=== PATIENT | female | born 1960 | race Caucasian/White ===

== ENCOUNTER → 2017-07-22 | Outpatient (CLI) | payer OTHER | END | disposition home or self-care (01) | LOC: CFH 14:06 | PROVIDERS: ATTEND Nurse Practitioner Family | DX: Z12.31 Encounter for screening mammogram for malignant neoplasm of breast (principal) | CPT/HCPCS: G0202 ==

== ENCOUNTER 2018-08-16 11:32 | Inpatient (IN) | payer OTHER ==
[~2018-08-16] VITALS: Ht 175.3 cm; Wt 115.4 kg
[2018-08-16 12:31] LABS: BASOPHILS # (AUTO) 0.02 x10^3/uL (0-0.1); BASOPHILS % (AUTO) 0 % (0-1); EOSINOPHILS # (AUTO) 0.32 x10^3/uL (0-0.4); EOSINOPHILS % (AUTO) 5 % (1-7); LYMPHOCYTES % (AUTO) 29 % (22-44); MD NO; MEAN CORPUSCULAR HEMOGLOBIN 28.9 pg (27.0-34.8); MEAN CORPUSCULAR HGB CONC 32.3 g/dL (32.4-35.8); MEAN CORPUSCULAR VOLUME 89.4 fL (80-100); MEAN PLATELET VOLUME 6.8 fL (7.4-10.4); MONOCYTES # (AUTO) 0.75 x10^3/uL (0.2-0.8); MONOCYTES % (AUTO) 11 % (2-9); NEUTROPHILS # (AUTO) 3.71 x10^3/uL (1.8-6.8); NEUTROPHILS % (AUTO) 55 % (42-75); PLATELET COUNT 274 x10^3/uL (130-400); RED BLOOD COUNT 4.22 x10^6/uL (3.82-5.3); RED CELL DISTRIBUTION WIDTH 16.1 % (9.6-15.2)
[2018-08-16 12:44] LABS: ALBUMIN 3.5 g/dL (3.4-5.0); ANION GAP 6 mmol/L (5-15); CALCIUM 8.8 mg/dL (8.5-10.1); CHLORIDE 105 mmol/L (98-107); CREATININE 0.71 mg/dL (0.55-1.02)
[2018-08-16 14:54] LABS: INTERNATIONAL NORMALIZED RATIO 0.96 (0.93-1.1)
[2018-08-16] MEDS ORDERED: SODIUM CHLORIDE FLUSH 10ML SYR IVF PRN (15:00)
[2018-08-16] MEDS ORDERED: LABETALOL 5MG/ML, 20ML IVPush PRN (15:30)
[2018-08-16] MEDS ORDERED: ONDANSETRON 2MG/ML, 2ML IVPush PRN (15:30)
[2018-08-16] MEDS ORDERED: BISACODYL 10 MG SUPP PR PRN (15:30)
[2018-08-16] MEDS ORDERED: ENALAPRILAT 1.25 MG/ML, 2ML IVPush PRN (15:30)
[2018-08-16] MEDS ORDERED: OMNIPAQUE 350 MG/ML, 100ML BOTTLE ONE (15:50)
[2018-08-16 16:21] LABS: HEMOGLOBIN A1C 5.4 % (4.2-6.3)
[2018-08-16 16:47] VITALS: BP 131/86
[2018-08-16] MEDS ORDERED: ONDANSETRON ODT 4 MG PO PRN (17:00)
[2018-08-16] MEDS ORDERED: LEVE750T13 PO (17:14)
[2018-08-16] MEDS ORDERED: AMLO5TAB7 PO (17:14)
[2018-08-16] MEDS ORDERED: SERT100T PO (17:14)
[2018-08-16] MEDS ORDERED: LEVE750T37 PO (17:14)
[2018-08-16] MEDS ORDERED: CETI-158 PO (17:14)
[2018-08-16 17:20] VITALS: BP 131/86
[2018-08-16] MEDS ORDERED: DOCUSATE 100 MG CAPSULE PO PRN (21:00)
[2018-08-16] MEDS: LEVETIRACETAM 500 MG TABLET PO SCH (21:13)
[2018-08-17] MEDS ORDERED: HEPARIN 5,000 UNITS/ML, 1ML IV ONE (02:30)
[2018-08-17] MEDS ORDERED: HEPARIN 5,000 UNITS/ML, 1ML IV PRN (02:30)
[2018-08-17] MEDS ORDERED: HEPARIN 25,000 UNITS/500ML PMX 500 ML IV PRN (02:30)
[2018-08-17] MEDS ORDERED: HEPARIN wt. based STROKE protocol MC PRN (03:00)
[2018-08-17] MEDS: HEPARIN 25,000 UNITS/500ML PMX 500 ML IV PRN ×2 (03:08→19:53)
[2018-08-17 04:14] LABS: BASOPHILS # (AUTO) 0.04 x10^3/uL (0-0.1); BASOPHILS % (AUTO) 1 % (0-1); EOSINOPHILS # (AUTO) 0.33 x10^3/uL (0-0.4); EOSINOPHILS % (AUTO) 5 % (1-7); LYMPHOCYTES % (AUTO) 26 % (22-44); MD NO; MEAN CORPUSCULAR HEMOGLOBIN 29.3 pg (27.0-34.8); MEAN CORPUSCULAR HGB CONC 32.8 g/dL (32.4-35.8); MEAN CORPUSCULAR VOLUME 89.1 fL (80-100); MEAN PLATELET VOLUME 6.8 fL (7.4-10.4); MONOCYTES # (AUTO) 0.62 x10^3/uL (0.2-0.8); MONOCYTES % (AUTO) 9 % (2-9); NEUTROPHILS # (AUTO) 3.96 x10^3/uL (1.8-6.8); NEUTROPHILS % (AUTO) 60 % (42-75); PLATELET COUNT 275 x10^3/uL (130-400); RED CELL DISTRIBUTION WIDTH 16.2 % (9.6-15.2)
[2018-08-17 04:21] LABS: ALANINE AMINOTRANSFERASE 26 U/L (12-78); ALBUMIN 3.4 g/dL (3.4-5.0); ANION GAP 8 mmol/L (5-15); CALCIUM 8.6 mg/dL (8.5-10.1); CHLORIDE 105 mmol/L (98-107); CHOLESTEROL, TOTAL 189 mg/dL (140-239); CREATININE 0.65 mg/dL (0.55-1.02)
[2018-08-17 04:23] LABS: ALKALINE PHOSPHATASE 83 U/L (45-117); BILIRUBIN,TOTAL 0.5 mg/dL (0.2-1.0); CHOL/HDL RATIO 2.9; HDL CHOL % 35 % (28-40); HDL CHOLESTEROL (DIRECT) 66 mg/dL (40-60); LDL CHOLESTEROL,CALCULATED 106 mg/dL (54-169); LDL/HDL RATIO 1.6 (0.5-3.0); TOTAL PROTEIN 6.8 g/dL (6.4-8.2); TRIGLYCERIDES 83 mg/dL (50-200); VLDL CHOLESTEROL 17 mg/dL (0-25)
[2018-08-17 05:00] VITALS: BP 122/68
[2018-08-17] MEDS: AMLODIPINE 5 MG TABLET PO SCH (08:20)
[2018-08-17] MEDS: LEVETIRACETAM 500 MG TABLET PO SCH ×2 (08:21→21:04)
[2018-08-17] MEDS: SENNA/DOCUSATE TABLET PO SCH (08:22)
[2018-08-18 04:00] VITALS: BP 130/76
[2018-08-18 04:24] LABS: BASOPHILS # (AUTO) 0.03 x10^3/uL (0-0.1); BASOPHILS % (AUTO) 0 % (0-1); EOSINOPHILS # (AUTO) 0.23 x10^3/uL (0-0.4); EOSINOPHILS % (AUTO) 4 % (1-7); LYMPHOCYTES # (AUTO) 2.11 x10^3/uL (1-3.4); LYMPHOCYTES % (AUTO) 32 % (22-44); MD NO; MEAN CORPUSCULAR HEMOGLOBIN 29.1 pg (27.0-34.8); MEAN CORPUSCULAR HGB CONC 32.6 g/dL (32.4-35.8); MEAN CORPUSCULAR VOLUME 89.1 fL (80-100); MEAN PLATELET VOLUME 6.8 fL (7.4-10.4); MONOCYTES # (AUTO) 0.62 x10^3/uL (0.2-0.8); MONOCYTES % (AUTO) 10 % (2-9); NEUTROPHILS # (AUTO) 3.54 x10^3/uL (1.8-6.8); NEUTROPHILS % (AUTO) 54 % (42-75); PLATELET COUNT 245 x10^3/uL (130-400); RED BLOOD COUNT 4.31 x10^6/uL (3.82-5.3); RED CELL DISTRIBUTION WIDTH 16.4 % (9.6-15.2)
[2018-08-18 04:31] LABS: ANION GAP 8 mmol/L (5-15); CALCIUM 8.8 mg/dL (8.5-10.1); CHLORIDE 104 mmol/L (98-107); CREATININE 0.79 mg/dL (0.55-1.02)
[2018-08-18] MEDS: LEVETIRACETAM 500 MG TABLET PO SCH ×2 (08:29→20:17)
[2018-08-18] MEDS: AMLODIPINE 5 MG TABLET PO SCH (08:29)
[2018-08-18] MEDS: HEPARIN 25,000 UNITS/500ML PMX 500 ML IV PRN ×2 (08:31→20:26)
[2018-08-18] MEDS: SENNA/DOCUSATE TABLET PO SCH (08:36)
[2018-08-18] MEDS: WARFARIN MODERAT DOSE PROTOCOL XX SCH (12:00)
[2018-08-18] MEDS: ACETAMINOPHEN 325 MG TABLET PO PRN (14:00)
[2018-08-18 14:05] LABS: INTERNATIONAL NORMALIZED RATIO 1.02 (0.93-1.1); PROTHROMBIN TIME 10.6 Seconds (9.6-11.5)
[2018-08-18 14:23] VITALS: BP 125/84
[2018-08-18] MEDS ORDERED: WARFARIN 7.5 MG TABLET PO-COUM ONE (18:00)
[2018-08-18 19:56] VITALS: BP 133/90
[2018-08-19 00:24] VITALS: BP 133/85
[2018-08-19 05:21] LABS: BASOPHILS # (AUTO) 0.04 x10^3/uL (0-0.1); BASOPHILS % (AUTO) 1 % (0-1); EOSINOPHILS # (AUTO) 0.22 x10^3/uL (0-0.4); EOSINOPHILS % (AUTO) 4 % (1-7); LYMPHOCYTES # (AUTO) 2.14 x10^3/uL (1-3.4); LYMPHOCYTES % (AUTO) 35 % (22-44); MD NO; MEAN CORPUSCULAR HEMOGLOBIN 29.1 pg (27.0-34.8); MEAN CORPUSCULAR HGB CONC 32.7 g/dL (32.4-35.8); MONOCYTES # (AUTO) 0.58 x10^3/uL (0.2-0.8); MONOCYTES % (AUTO) 9 % (2-9); NEUTROPHILS # (AUTO) 3.17 x10^3/uL (1.8-6.8); NEUTROPHILS % (AUTO) 52 % (42-75); PLATELET COUNT 256 x10^3/uL (130-400); RED BLOOD COUNT 4.41 x10^6/uL (3.82-5.3)
[2018-08-19 05:24] LABS: INTERNATIONAL NORMALIZED RATIO 1.06 (0.93-1.1)
[2018-08-19 05:29] LABS: ANION GAP 9 mmol/L (5-15); CALCIUM 8.9 mg/dL (8.5-10.1); CHLORIDE 106 mmol/L (98-107)
[2018-08-19 05:33] LABS: CREATININE 0.61 mg/dL (0.55-1.02)
[2018-08-19 08:00] VITALS: BP 124/85
[2018-08-19] MEDS: HEPARIN 25,000 UNITS/500ML PMX 500 ML IV PRN ×2 (08:30→19:56)
[2018-08-19] MEDS: SENNA/DOCUSATE TABLET PO SCH (09:00)
[2018-08-19] MEDS: AMLODIPINE 5 MG TABLET PO SCH (10:59)
[2018-08-19] MEDS: LEVETIRACETAM 500 MG TABLET PO SCH ×2 (10:59→19:54)
[2018-08-19] MEDS: WARFARIN MODERAT DOSE PROTOCOL XX SCH (12:00)
[2018-08-19] MEDS: WARFARIN 5 MG TABLET PO-COUM SCH (17:51)
[2018-08-19] MEDS ORDERED: WARFARIN 10 MG TABLET PO-COUM ONE (18:00)
[2018-08-19 18:45] VITALS: BP 116/83
[2018-08-19] MEDS: ACETAMINOPHEN 325 MG TABLET PO PRN (19:54)
[2018-08-20 01:33] VITALS: BP 122/69
[2018-08-20 05:29] LABS: INTERNATIONAL NORMALIZED RATIO 1.67 (0.93-1.1); PROTHROMBIN TIME 17.2 Seconds (9.6-11.5)
[2018-08-20] MEDS: HEPARIN 25,000 UNITS/500ML PMX 500 ML IV PRN ×2 (08:45→20:23)
[2018-08-20] MEDS: SENNA/DOCUSATE TABLET PO SCH (08:45)
[2018-08-20] MEDS: AMLODIPINE 5 MG TABLET PO SCH (08:46)
[2018-08-20] MEDS: LEVETIRACETAM 500 MG TABLET PO SCH ×2 (08:46→20:10)
[2018-08-20] MEDS: WARFARIN 5 MG TABLET PO-COUM SCH (18:02)
[2018-08-20 20:04] VITALS: BP 121/84
[2018-08-21 00:11] VITALS: BP 132/79
[2018-08-21 05:19] LABS: INTERNATIONAL NORMALIZED RATIO 2.65 (0.93-1.1); PROTHROMBIN TIME 26.8 Seconds (9.6-11.5)
[2018-08-21 06:40] VITALS: BP 108/74
[2018-08-21] MEDS: AMLODIPINE 5 MG TABLET PO SCH (08:39)
[2018-08-21] MEDS: SENNA/DOCUSATE TABLET PO SCH (08:40)
[2018-08-21] MEDS: LEVETIRACETAM 500 MG TABLET PO SCH (08:40)
[2018-08-21] MEDS ORDERED: WARF5TAB PO-COUM (09:54)
== END 2018-08-21 12:04 | disposition home health service (06) | DRG 252 ==
LOC: ED 12:55 → EDIP 14:46 → 4WST 16:35 → CCU 19:19 → 5SO 08-18 11:00 → DCLOUNGE 08-21 10:45
PROVIDERS: ADMIT Hospitalist; ATTEND Hospitalist
PROC: 06H03DZ Insertion of Intraluminal Device into Inferior Vena Cava, Percutaneous Approach (ICD-10-PCS; principal; 2018-08-17)
DX: I82.411 Acute embolism and thrombosis of right femoral vein (principal); I26.99 Other pulmonary embolism without acute cor pulmonale; I10 Essential (primary) hypertension; F32.9 Major depressive disorder, single episode, unspecified; G43.909 Migraine, unspecified, not intractable, without status migrainosus; G93.89 Other specified disorders of brain; E66.01 Morbid (severe) obesity due to excess calories; J45.909 Unspecified asthma, uncomplicated; Z86.73 Personal history of transient ischemic attack (TIA), and cerebral infarction without residual deficits; Z83.3 Family history of diabetes mellitus; Z80.41 Family history of malignant neoplasm of ovary; Z68.37 Body mass index [BMI] 37.0-37.9, adult
CPT/HCPCS: 36415; 37191; 70450; 71275; 76937; 80048; 80053; 80061; 82040; 83036; 83735; 83880; 84100; 85025; 85520; 85610; 85730; 87081; 93005; 99285; C1880; G0378; J1644; J3010; Q9967; C1769

== ENCOUNTER → 2018-10-26 | Outpatient (CLI) | payer OTHER ==
[~2018-10-26] MED LIST: AMLO-150 PO; CETI-158 PO; LEVE750T13 PO; LEVE750T37 PO; SERT100T PO; WARF5TAB PO-COUM
== END | disposition home or self-care (01) ==
LOC: CVU 09:36
PROVIDERS: ATTEND Registered Nurse
DX: R09.89 Other specified symptoms and signs involving the circulatory and respiratory systems (principal); I82.409 Acute embolism and thrombosis of unspecified deep veins of unspecified lower extremity; I10 Essential (primary) hypertension; I63.9 Cerebral infarction, unspecified
CPT/HCPCS: 93306; 93880